=== PATIENT | female | born 1940 | race Caucasian/White ===

== ENCOUNTER 2017-07-19 07:45 | Inpatient (IN) | payer OTHER ==
[2017-06-27 12:59] VITALS: BMI 34.0
--- NOTE | 2017-06-27 13:45 | PAT Medication Instructions ---
Service Date Jun 27, 2017. Current Home Medication List Acetaminophen (Tylenol Arthritis Ext Rel), 650 MG PO Q8H PRN for Pain Atorvastatin (Lipitor), 20 MG PO HS Losartan Potassium (Cozaar), 25 MG PO QPM Magnesium Oxide (Mag-Ox), 400 MG PO QAM Potassium Chloride (Micro-K Ext Rel), 10 MEQ PO QAM Sennosides-Docusate Sodium (Stool Softener), 1 TAB PO QD PRN for Constipation Warfarin Sod (Jantoven), 2.5 MG PO MONDAY Warfarin Sod (Jantoven), 5 MG PO M,W,F,SAT,SUN Warfarin Sod (Aprtoven), 7.5 MG PO MONDAY Medication Instructions For Your Scheduled Surgery -Contact your prescriber for instructions for: Warfarin Sod (Aprtoven), 2.5 MG PO MONDAY Warfarin Sod (Aprtoven), 5 MG PO ,,,SAT,SUN Warfarin Sod (Aprtoven), 7.5 MG PO MONDAY - Hold the following medications 24 hours prior to surgery: Losartan Potassium (Cozaar), 25 MG PO QPM - Hold the following medications the morning of surgery: Magnesium Oxide (Mag-Ox), 400 MG PO QAM Potassium Chloride (Micro-K Ext Rel), 10 MEQ PO QAM Sennosides-Docusate Sodium (Stool Softener), 1 TAB PO QD PRN for Constipation - Take the following medications the morning of surgery with a sip of water: Acetaminophen (Tylenol Arthritis Ext Rel), 650 MG PO Q8H PRN for Pain (if needed , can be taken up to four hours before surgery) - Take the following medications as scheduled the night before surgery: Acetaminophen (Tylenol Arthritis Ext Rel), 650 MG PO Q8H PRN for Pain (if needed ) Atorvastatin (Lipitor), 20 MG PO HS Sennosides-Docusate Sodium (Stool Softener), 1 TAB PO QD PRN for Constipation ( if needed) If you have any questions please call us at [phone] or [phone] or [phone]
--- NOTE | 2017-06-27 14:25 | DIAGNOSTIC IMAGING REPORT ---
TWO VIEW CHEST CLINICAL HISTORY: Preoperative examination. FINDINGS: PA and lateral chest radiographs are compared to study dated 02/03/2015. The heart is enlarged and there is atherosclerotic calcification of the thoracic aorta. The pulmonary vascular is noncongested. Chronic elevation of the right hemidiaphragm and chronic interstitial thickening are similar to previous. No airspace consolidation or pleural effusion is identified. There is no pneumothorax. The skeletal structures are osteopenic. Degenerative change is seen in the shoulders and thoracic spine. Surgical clips are seen in the right upper quadrant. IMPRESSION: Cardiomegaly with no active disease in the chest. Electronically signed by: Luke Heard M.D. 06/27/2017 2:24 PM Dictated Date/Time: 06/27/2017 2:21 PM
[2017-06-27 14:42] LABS: BASO % 0.3 %; BASO ABS # 0.02 K/uL (0-0.2); EOS % 2.3 %; EOS ABS # 0.14 K/uL (0-0.5); HEMATOCRIT 37.7 % (37-47); HEMOGLOBIN 13.6 g/dL (12.0-16.0); IG# 0.01 K/uL (0.00-0.02); LYMPH % 34.5 %; LYMPH ABS # 2.08 K/uL (1.2-3.4); MEAN CELL VOLUME 88.7 fL (80-100); MEAN CORPUSCULAR HGB CONC 36.1 g/dl (32-36); MEAN PLATELET VOLUME 9.7 fL (7.4-10.4); MONO ABS # 0.48 K/uL (0.11-0.59); NEUT % 54.7 %; PLATELET COUNT 168 K/uL (130-400); RED CELL DISTRIBUTION WIDTH CV 13.5 % (11.5-14.5); RED CELL DISTRIBUTION WIDTH SD 44.1 fL (36.4-46.3); WHITE BLOOD COUNT 6.03 K/uL (4.8-10.8)
[2017-06-27 15:28] LABS: INR 5.6 (0.9-1.1)
[2017-06-27 15:29] LABS: PTT PATIENT 52.7 SECONDS (21.0-31.0)
[2017-06-27 16:00] LABS: ALBUMIN 3.4 gm/dl (3.4-5.0); CALCIUM 9.3 mg/dl (8.5-10.1); CREATININE 0.91 mg/dl (0.60-1.20); POTASSIUM 3.8 mmol/L (3.5-5.1)
[2017-06-28 06:41] LABS: HEMOGLOBIN A1C 5.9 % (4.5-5.6)
--- NOTE | 2017-07-18 20:55 | HISTORY & PHYSICAL EXAMINATION ---
DATE OF ADMISSION: 07/18/2017 CHIEF COMPLAINT: Chronic left shoulder rotator cuff tendinopathy. HISTORY OF PRESENT ILLNESS: This is a 76-year-old female patient of Dr. Camarena'ava complaining of chronic left shoulder rotator cuff tendinopathy. She has failed conservative treatment including intraarticular injections. She wished to proceed with a left reversed total shoulder arthroplasty. PAST MEDICAL HISTORY: Hypertension, atrial fibrillation, history of a mini stroke, carpal tunnel syndrome, osteoarthritis, spine problems, kidney stones, acid reflux. SOCIAL HISTORY: Nonsmoker, nondrinker. PAST SURGICAL HISTORY: Tonsillectomy, breast reduction, saliva gland tumor removal, hysterectomy, knee replacement, left leg vein surgery, bilateral eye surgery. FAMILY HISTORY: Noncontributory. REVIEW OF SYSTEMS: The patient complains of left shoulder pain and decreased strength, otherwise denies any shortness of breath, chest pain, nausea, vomiting, or any joint complaints. MEDICATIONS: Include: 1. Magnesium oxide 500 mg daily. 2. Coumadin 5 mg daily according to blood values. 3. Losartan 25 mg daily. 4. Atorvastatin 20 mg at bedtime. 5. Arthritis Tylenol as needed. ALLERGIES: No known drug allergies. PHYSICAL EXAMINATION: GENERAL: Well-developed, well-nourished 76-year-old female, in no acute distress. She is alert and oriented x3 and pleasant. HEENT: Normocephalic, atraumatic. Extraocular motions are intact. Pupils are equal and reactive to light. HEART: Regular rate and rhythm, no murmurs are appreciated. LUNGS: Clear. ABDOMEN: Soft and nontender. Bowel sounds are present. EXTREMITIES: Left shoulder reveals crepitation with passive range of motion. Actively, she can get to 0-45, passively to 120. She has 3+/5 strength. NEUROLOGIC: Neurovascularly, she is intact in the left upper extremity. DIAGNOSES: Left shoulder chronic rotator cuff tendinopathy, hypertension, atrial fibrillation, history of mini stroke, carpal tunnel syndrome, osteoarthritis, spine problems, acid reflux, kidney stones. PLAN: The patient was advised of the diagnosis. Indications, risks, benefits, postop course have all been reviewed. Patient wished to proceed with a left reversed total shoulder arthroplasty. Necessary consent forms, preoperative testing, and clearances will be obtained.
[2017-07-19] VITALS (7 sets, daily range): BP systolic 105–160; BP diastolic 66–97; PULSE 73–85; TEMP 36.4–36.6; O2SAT 91–97; Ht 152.4 cm; Wt 80.7 kg
[~2017-07-19] VITALS: Ht 152.4 cm; Wt 80.7 kg
[~2017-07-19 07:45] MED LIST: ACET1TAB84 PO; ACETAMINOPHEN 500 MG TAB PO SCH; ATOR-22 PO; CEFAZOLIN 2000MG IV PUSH 15 ML IV SCH; CeleBREX 200 MG CAP PO SCH; DEXAMETHASONE 4 MG TAB PO SCH; FAMOTIDINE 20 MG TAB PO SCH; GABAPENTIN 300 MG CAP PO SCH; LACTATED RINGER'S 1000ML 1,000 ML IV SCH; LOSA1TAB PO; MAGN400T6 PO; METOCLOPRAMIDE HCL 10 MG TAB PO SCH; POTA10CA28 PO; SENNTAB23 PO; WARF2.5T8 PO; WARF5TAB7 PO; WARF7.5T4 PO
[2017-07-19] MEDS ORDERED: ENOX80IN SQ (08:34)
[2017-07-19 08:41] LABS: INR 1.1 (0.9-1.1)
[2017-07-19] MEDS ORDERED: DEXAMETHASONE SOD INJ 4 MG/ML VIAL ONE (08:44)
[2017-07-19] MEDS ORDERED: BUPIVACAINE 0.25% 30 ML VIAL ONE (08:44)
[2017-07-19] MEDS ORDERED: EpINEphrine INJ 1MG/ML AMP 1 MG/ML AMP ONE (08:44)
[2017-07-19] MEDS ORDERED: FENTANYL CITRATE INJ 50 MCG/1 ML 2 ML VIAL ONE ×2 (11:07→12:51)
[2017-07-19] MEDS ORDERED: MIDAZOLAM HCL 1 MG/ML 2ML VIAL ONE (11:07)
--- NOTE | 2017-07-19 11:11 | History & Physical Bridge Note ---
H&P Re-Evaluation Bridge Note: I have examined the patient, reviewed the History & Physical and in the interval since the performance of the History & Physical I have noted the following changes of clinical significance: No changes noted
[2017-07-19] MEDS ORDERED: BACITRACIN 50000 UNIT VIAL ONE (11:15)
[2017-07-19] MEDS ORDERED: FENTANYL CITRATE INJ 50 MCG/1 ML 2 ML VIAL IV PRN (12:00)
[2017-07-19] MEDS ORDERED: ONDANSETRON INJ 2 MG/ML 2 ML VIAL IV PRN ×2 (12:00→14:30)
[2017-07-19] MEDS ORDERED: ATROPINE SULFATE 0.1 MG/ML 5ML SYR IV PRN (12:00)
[2017-07-19] MEDS ORDERED: EpHEDrine SULFATE INJ 50 MG/ML AMP IV PRN (12:00)
[2017-07-19] MEDS ORDERED: NEOSTIGMINE METHYLSULFATE 5 MG/5 ML SYR ONE (12:10)
[2017-07-19] MEDS ORDERED: GLYCOPYRROLATE INJ 0.2 MG/ML VIAL ONE (12:10)
[2017-07-19] MEDS ORDERED: LIDOCAINE HCL 2% 2 ML VIAL (20MG/ML) ONE (12:10)
[2017-07-19] MEDS ORDERED: ROCURONIUM BROMIDE 10 MG/ML 5 ML VIAL IV ONE (12:10)
[2017-07-19] MEDS ORDERED: PHENYLEPHRINE HCL INJ 10 MG/ML VIAL ONE (12:10)
[2017-07-19] MEDS ORDERED: PROPOFOL IV EMULSION 10 MG/ML 20 ML VIAL IV ONE (12:10)
[2017-07-19] MEDS ORDERED: ONDANSETRON INJ 2 MG/ML 2 ML VIAL ONE (12:10)
--- NOTE | 2017-07-19 14:19 | [facility] Post Operative Brief Note ---
Immediate Operative Summary Operative Date Jul 19, 2017. Pre-Operative Diagnosis Left Shoulder Chronic Rotator Cuff arthropathy rotaotr cuff tear. end stage djd glenohumeral,biceps tendinopathy Post-Operative Diagnosis same Procedure(s) Performed Left Reverse Total Shoulder Arthroplasty, Biceps Tendonesis, Rotator Cuff Repair Surgeon Dr Camarena In Service Coordinator Surgeon(s) Octavio Ledesma PA-C Estimated Blood Loss 100 cc Findings Consistent with Post-Op Diagnosis Specimens A: Humeral Head Drains 2 hemovac Anesthesia Type General Regional Complication(s) none Disposition Disposition: Recovery Room / PACU
[2017-07-19] MEDS ORDERED: DOCUSATE SODIUM/SENNA 50/8.6MG TAB PO PRN (14:30)
[2017-07-19] MEDS ORDERED: MoRPHine SULFATE 2 MG/ML CARP IV PRN (14:30)
[2017-07-19] MEDS ORDERED: NALOXONE HCL 0.4 MG/1 ML VIAL/CARP IV PRN (14:30)
[2017-07-19] MEDS ORDERED: KETOROLAC TROMETHAMINE 15 MG/ML VIAL IV. PRN (14:30)
[2017-07-19] MEDS ORDERED: SOD PHOSPHATE/SOD BIPHOSPHATE ENEMA 132 ML BTL PR PRN (14:30)
[2017-07-19] MEDS ORDERED: MAGNESIUM HYDROXIDE SUSP 30 ML UDC PO PRN (14:30)
[2017-07-19] MEDS ORDERED: METOCLOPRAMIDE HCL INJ 5 MG/ML 2 ML VIAL IV PRN (14:30)
[2017-07-19] MEDS ORDERED: ZOLPIDEM TARTRATE 5 MG TAB PO PRN (14:30)
[2017-07-19] MEDS ORDERED: BISACODYL 10 MG SUPP PR PRN (14:30)
--- NOTE | 2017-07-19 14:30 | [facility] Operative Report ---
Operative Report Operative Date Jul 19, 2017. Pre-Operative Diagnosis Left Shoulder Chronic Rotator Cuff arthropathy rotator cuff tear. end stage djd glenohumeral,biceps tendinopathy Post-Operative Diagnosis same Procedure(s) Performed left reversed total shoulder replacement,biceps tenodesis Surgeon Dr Camarena Lock Plater Surgeon(s) Octavio Ledesma PA-C Estimated Blood Loss 100 cc Findings chronic rotator cuff tear end stage djd ghj biceps tendinopathy Specimens A: Humeral Head Drains 2 hemovac Disposition Recovery Room / PACU Indications end stage djd oa chronic rotator cuff tear I attest to the content of the Intraoperative Record and any orders documented therein. Any exceptions are noted below.
[2017-07-19] MEDS ORDERED: LABETALOL HCL IV 5 MG/ML 20ML IV ONE (14:38)
--- NOTE | 2017-07-19 14:56 | [facility] Operative Report ---
Operative Report Operative Date Jul 19, 2017. Pre-Operative Diagnosis Left Shoulder Chronic Rotator Cuff arthropathy rotator cuff tear. end stage djd glenohumeral,biceps tendinopathy Post-Operative Diagnosis Same Procedure(s) Performed Left shoulder reversed total shoulder arthroplasty, biceps tenodesis and rotator cuff repair. Surgeon Dr Camarena Dog Hair Clipper Surgeon(s) Octavio Ledesma PA-C Estimated Blood Loss 100 cc Findings Severe end-stage glenohumeral osteoarthritis chronic nonrepairable rotator cuff tear rotator cuff tendinopathy, biceps tendinopathy. Specimens A: Humeral Head Drains 2 hemovac Anesthesia Regional block general Complication(s) None Disposition Recovery Room / PACU Indications 76-year-old female chronic progressive pain and disability left shoulder with chronic retracted nonrepairable rotator cuff tear end-stage glenohumeral DJD [id number] glenohumeral joint and biceps tendinopathy. Description of Procedure The patient was taken to the operating room and anesthetized under regional block and general anesthetic. The patient was positioned on the operating table in a 30 beachchair position with a towel roll under the medial border of the left scapula. The arm was draped free to be able to manipulate the shoulder as needed. The left upper extremity was prepped and draped in usual sterile fashion. Exam demonstrated axrf-tl-tliu crepitation very limited range of motion and a moderately obese arm. External rotation was to 35 abduction to 60 and forward elevation to 100. An anterior deltopectoral approach was performed. A longitudinal incision was made in the deltopectoral interval. The skin was incised sharply. Subcutaneous flaps were elevated off the fascia. The cephalic vein was dissected out and retracted lateral with the deltoid. The clavipectoral fascia was divided at the lateral margin of the conjoined tendon and extended up to the CA ligament. The following findings were noted: There was chronic thickened bursitis overlying the subscapularis tendon which was intact. There is chronic bicipital tenosynovitis biceps spurs in the bicipital groove and biceps tendinopathy within the joint with marked widening and fraying. There is a few fibers of the rotator cuff supraspinatus still intact. A large tear involving the posterior supraspinatus infraspinatus with retraction was identified with chronic tendinopathy and an intact teres minor. I excised the bursal tissue release any adhesions underlying the deltoid cauterized some bleeders. The upper centimeter of the pectoralis was released for inferior exposure. The biceps tendon was tenodesed to the pectoralis tendon with #2 FiberWire. The proximal biceps was resected. The subscapularis tendon was taken down off the lesser tuberosity using a subperiosteal dissection. A #1 Vicryl traction suture was placed into the free end of the subscapularis tendon and capsule. The subscapular muscle fibers were split longitudinally at the level of the circumflex vessels. The circumflex vessels were identified and tied off with silk ties and divided laterally. A Kitner elevator was used to free up the inferior fibers of the subscapularis off of the capsule. The axillary nerve was identified with a tug test and protected with a blunt Adonis retractor between the nerve and the capsule. The subscapularis tendon was then taken down off of the lesser tuberosity subperiosteally and subperiosteal dissection was performed along the neck of the humerus as the arm is gradually actually rotated exposing the humeral head. Retractors were readjusted and the inferior osteophytes were all resected using an artist chisel. A Zimmer elevator was used to assist in releasing the capsule of the neck of the humerus. The capsule was divided with Flood scissors down to the glenoid released off the anterior glenoid and the rotator interval was released to meet the capsular release and a 360 release of the subscapularis was accomplished. A Fukuda retractor was placed into the joint retracting the humeral head posterior. Glenoid findings demonstrated eburnated bone of the glenoid concentric type where majority of the labrum was worn away. The labrum remnants and biceps tendon was resected. Biceps tendon findings demonstrated widening tendinopathic biceps attachment. an anterior-inferior and posterior inferior capsular release were performed with electrocautery and a Zimmer elevator on bone with the axillary nerve protected inferiorly by the retractor. Attention was then taken to the humeral preparation. The cutting guide was placed into the humeral head. It was positioned at 20 of retroversion. Oscillating saw was used to resect the humeral head giving the cut above the level of the posterior rotator cuff insertion site. The humerus was then prepared for the stem. I used the ascend flex stem from [employer]. The sizing broaches were used followed by trial broaches up to a size 3B long which had the appropriate fit and fill. The appropriate sized cup protector was placed. The humerus was then retracted posterior to the glenoid. The glenoid was sized for a 25 mm Tornier aequalis standard baseplate. The guide for the baseplate was positioned in a 10 inferior tilt and the central drill hole was made. The reamer for the 25 baseplate was used. The central drill was widened for the peg. The 25 baseplate was impacted into position. The base plate was transfixed with superior and inferior locking screws and anterior and posterior compression screws with stable fixation. The fan reamer was used for the 36 millimeter glenoid sphere. After irrigation the 36 mm outer diameter 25 mm inner diameter with a +2 inferior offset glenoid sphere was impacted onto the baseplate and the screw was tightened. Attention was taken back to the humerus. The cut protector was removed and the high offset +0 humeral tray trial was assembled to the trial stem rotated appropriately to get bony coverage and then screwed in position. A trial reduction was performed. A +6 mm trial insert demonstrated good stability and no shuck. The trials were removed. 3 drill holes are made into the harder bone in the bicipital groove area and 3 #5 FiberWire sutures were placed transosseously. The canal was irrigated with antibiotic solution with bacitracin. The final component was assembled. The final component was sent flex IIIB longstem +0 high offset humeral tray with a + 6,36 mm polyethylene. This was then impacted into the humerus with a tight press-fit. It was reduced to the glenoid sphere. Stability was verified. Subscapularis was repaired with the #5 FiberWire sutures using Alban-Aston suture technique. Lateral row soft tissue repair was performed with #2 FiberWire ygnxhu-ul-bviys sutures. A #2 FiberWire suture was placed through the teres minor some the retracted infraspinatus was mobilized laterally and then through the posterior supraspinatus with a ynpajy-cx-prhqr dcgq-gx-dcdd suture technique to have more tissue posteriorly to assist in increased external rotation strength postop. The pectoralis was repaired with #2 FiberWire qwwuji-ag-rjmdo sutures reinforcing the biceps tendon tenodesis. The arm was taken through a range of motion which demonstrated 125 flexion 90 abduction 45 external rotation. The implant was stable through the range of motion tested. The wound was copiously irrigated. 2 Hemovac drains were placed. The deltopectoral interval was closed with tbgcrg-so-qswzy #1 Vicryl sutures. The subcutaneous tissues were closed with 2-0 Vicryl sutures. The skin was closed with nyasia. Sterile dressings were applied and a shoulder immobilizer. Octavio UGARTE, my physician technical administrative assistant assisted in the procedure to the entire procedure including patient positioning arm positioning prepping and draping soft tissue retraction instrument management suture management and performed the subcutaneous and skin closure and will participate in the postoperative care of the patient. I attest to the content of the Intraoperative Record and any orders documented therein. Any exceptions are noted below.
--- NOTE | 2017-07-19 15:22 | Anesthesiology Progress Note ---
Anesthesia Post Op Note Date & Time Jul 19, 2017 at 15:22 Vital Signs Pain Intensity: 0 Vital Signs Past 12 Hours Date Time Temp Pulse Resp B/P (MAP) Pulse Ox O2 Delivery O2 Flow Rate FiO2 07/19/17 15:10 71 16 148/88 95 Oxymask 3 07/19/17 15:00 73 16 164/83 94 Oxymask 3 07/19/17 14:50 75 16 156/77 95 Oxymask 3 07/19/17 14:40 76 16 164/74 95 Oxymask 5 07/19/17 14:32 36.2 74 16 167/78 95 Oxymask 5 07/19/17 11:26 16 137/71 (93) 96 Oxymask 10 07/19/17 08:15 36.6 85 20 160/97 97 Room Air Notes Mental Status: alert / awake / arousable, participated in evaluation Pt Amnestic to Procedure: Yes Nausea / Vomiting: adequately controlled Pain: adequately controlled Airway Patency, RR, SpO2: stable & adequate BP & HR: stable & adequate Hydration State: stable & adequate Anesthetic Complications: no major complications apparent
--- NOTE | 2017-07-19 15:24 | DIAGNOSTIC IMAGING REPORT ---
L SHOULDER MIN 2 VIEWS ROUTINE HISTORY: 76 years-old Female Post shoulder surgery status post left shoulder total joint arthroplasty COMPARISON: None available TECHNIQUE: 3 views of the left shoulder FINDINGS: Postoperative changes from recent reverse left shoulder total joint arthroplasty. Surgical nyasia are in place along with expected postsurgical soft tissue swelling and deep tissue air. Surgical drain is in place. No acute fracture or malalignment. Moderate degenerative changes of the AC joint. Lungs appear hypoinflated with left pleural effusion and left basilar opacities. IMPRESSION: Reverse left shoulder total joint arthroplasty with satisfactory alignment. The above report was generated using voice recognition software. It may contain grammatical, syntax or spelling errors. Electronically signed by: Errol Calderón M.D. 07/19/2017 3:22 PM Dictated Date/Time: 07/19/2017 3:21 PM
[2017-07-19] MEDS: D5W AND 1/2NSS + 20MEQ KCL 1,000 ML IV SCH (16:41)
[2017-07-19] MEDS: ENOXAPARIN 80 MG/0.8 ML SYR SQ SCH (18:19)
--- NOTE | 2017-07-19 19:55 | Medical Consult ---
Consultation Date of Consultation: Jul 19, 2017. Attending Physician: Dileep Camarena M.D. History of Present Illness 78 y/o F AF, HTN, TIA, renal calculi, DJD - presented for elective L total shoulder arthroplasty. She is recovering well post-op. Denies CP, SOB, N/V, fever or excessive pain. Past Medical/Surgical History 1) HTN 2) TIA 3) AF 4) DJD 5) Renal calculi 6) GERD Social History Smoking Status: Never Smoker Allergies Coded Allergies: Rivaroxaban (Verified Allergy, Mild, RASH, ITCHING, 07/19/17) Apixaban (Verified Adverse Reaction, Intermediate, 'SKIN CRAWLING', ) CHIDI Inhibitors (Verified Adverse Reaction, Mild, COUGH, 07/19/17) Current Inpatient Medications Current Inpatient Medications Medications (Trade) Dose Ordered Sig/Reggie Route Start Time Stop Time Status Last Admin Dose Admin Lactated Ringer's 1,000 ml @ 15 mls/hr Q24H IV 07/19/17 06:00 07/20/17 05:59 07/19/17 08:36 15 MLS/HR Atorvastatin Calcium (Lipitor Tab) 20 mg HS PO 07/19/17 21:00 08/18/17 20:59 Enoxaparin Sodium (Lovenox Inj) 80 mg Q12@0600,1800 SQ 07/19/17 18:00 08/18/17 17:59 07/19/17 18:19 80 MG Losartan Potassium (coZAAR TAB) 25 mg QPM PO 07/19/17 21:00 08/18/17 20:59 Magnesium Oxide (Mag-Ox Tab) 400 mg QAM PO 07/20/17 09:00 08/19/17 08:59 Potassium Chloride (Klor-Con M10) 10 meq QAM PO 07/20/17 09:00 08/19/17 08:59 Senna/Docusate Sodium (Senokot S Tab) 1 tab QD PRN PO 07/19/17 14:30 08/18/17 14:29 Warfarin Sodium (Coumadin Tab) 2.5 mg Q7D@1600 PO 07/25/17 16:00 08/24/17 15:59 Warfarin Sodium (Coumadin Tab) 5 mg SuMoWeFrSa@1600 PO 07/21/17 16:00 08/20/17 15:59 Warfarin Sodium (Coumadin Tab) 7.5 mg Q7D@1600 PO 07/20/17 16:00 08/19/17 15:59 Ketorolac Tromethamine (Toradol Inj) 15 mg Q6 PRN IV. 07/19/17 14:30 07/20/17 14:29 Diphenhydramine HCl (Benadryl Cap) 25 mg Q8 PRN PO 07/19/17 14:30 08/18/17 14:29 Zolpidem Tartrate (Ambien Tab) 5 mg HSZ PRN PO 07/19/17 14:30 08/18/17 14:29 Metoclopramide HCl (Reglan Inj) 10 mg Q6H PRN IV 07/19/17 14:30 08/18/17 14:29 Ondansetron HCl (Zofran Inj) 4 mg Q6H PRN IV 07/19/17 14:30 08/18/17 14:29 Pantoprazole Sodium (Protonix Tab) 40 mg QAM PO 07/20/17 09:00 07/24/17 08:59 Potassium Chloride/Dextrose/ Sod Cl 1,000 ml @ 100 mls/hr Q10H IV 07/19/17 16:30 07/20/17 16:29 07/19/17 16:41 100 MLS/HR Oxycodone HCl (Roxicodone Immediate Rel Tab) `1-2 TABS FOR PAIN `1 TAB... Q4H PRN PO 07/19/17 14:30 08/02/17 14:29 Acetaminophen (Tylenol Tab) 1,000 mg Q8 PO 07/19/17 22:00 08/18/17 21:59 Morphine Sulfate (MoRPHine SULFATE INJ) as needed FOR PAIN, 2-4MG ... Q2H PRN IV 07/19/17 14:30 08/02/17 14:29 Naloxone HCl (Narcan Inj) 0.1 mg Q2M PRN IV 07/19/17 14:30 08/18/17 14:29 Magnesium Hydroxide (Milk Of Magnesia Susp) 30 ml Q6H PRN PO 07/19/17 14:30 08/18/17 14:29 Bisacodyl (Dulcolax Supp) 10 mg DAILY PRN MA 07/19/17 14:30 08/18/17 14:29 Sodium Biphosphate/ Sodium Phosphate (Fleet Enema) 132 ml DAILY PRN MA 07/19/17 14:30 08/18/17 14:29 Docusate Sodium (coLACE CAP) 100 mg BID PO 07/19/17 21:00 08/18/17 20:59 Multivitamins (Multivitamin Tab) 1 tab DAILY PO 07/20/17 09:00 08/19/17 08:59 Cefazolin Sodium 2000 mg/Syringe 15 ml @ 3.75 mls/ min Q8H IV 07/19/17 20:00 07/20/17 04:03 Review of Systems Constitutional: No fever, No chills, No sweats Eyes: No worsening of vision ENT: + hearing loss (Chronic) Respiratory: No cough, No sputum, No wheezing Cardiovascular: No chest pain, No orthopnea, No PND Abdomen: No pain, No nausea, No vomiting Musculoskeletal: No joint pain (No current pain reported) Genitourinary - Female: No dysuria, No urinary frequency, No urinary urgency Neurologic: No memory loss, No paralysis, No weakness Psychiatric: No depression symptoms Endocrine: No fatigue Hematologic / Lymphatic: + abnormal bleeding/bruising (Blood from drain in shoulder) Integumentary: No rash Physical Exam Date Time Temp Pulse Resp B/P (MAP) Pulse Ox O2 Delivery O2 Flow Rate FiO2 07/19/17 18:44 36.6 80 16 105/67 (80) 95 Room Air 07/19/17 16:40 36.4 73 18 133/79 (97) 95 Oxymask 3.0 07/19/17 16:16 36.4 73 16 110/66 (81) 95 Diffusion Mask 3.0 07/19/17 15:40 36.4 75 18 145/83 (103) 91 Oxymask 3.0 07/19/17 15:40 Oxymask 3.0 07/19/17 15:30 74 16 146/82 95 Oxymask 3 07/19/17 15:20 36.5 75 16 147/88 95 Oxymask 3 07/19/17 15:10 71 16 148/88 95 Oxymask 3 07/19/17 15:00 73 16 164/83 94 Oxymask 3 07/19/17 14:50 75 16 156/77 95 Oxymask 3 07/19/17 14:40 76 16 164/74 95 Oxymask 5 07/19/17 14:32 36.2 74 16 167/78 95 Oxymask 5 07/19/17 11:26 16 137/71 (93) 96 Oxymask 10 07/19/17 08:15 36.6 85 20 160/97 97 Room Air General Appearance: WD/WN, no apparent distress Head: normocephalic Eyes: normal inspection, EOMI ENT: normal ENT inspection, pharynx normal Neck: supple, thyroid normal Respiratory/Chest: chest non-tender, lungs clear Cardiovascular: no edema, no gallop, no murmur, + irregularly irregular Abdomen/GI: normal bowel sounds, non tender, soft Back: normal inspection, no CVA tenderness Extremities/Musculoskelatal: + pertinent finding (Bandaged L shoulder - drain in place - pulses + in all extrems) Neurologic/Psych: 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 She is recovering well post-op. Denies CP, SOB, N/V, fever or excessive pain. 1) Pst-op - no acute issues - pain is controlled - anticoagulation provided - PT /OT to discretion of ortho 2) AF - rate controlled without rate agents - She normally takes Coumadin and can likely resume AM. She is receiving BID Lovenox to bridge. 3) HTN - Can resume Losartan AM provided BMP remains at baseline 4) History of TIA - cont Statin and transition benjamin to Coumadin as possible. Total time for this admit including review of labs, meds, imaging, records, ortho notes - discussion/exam with pt - 30 min Med will follow pending DC
[2017-07-19] MEDS: CEFAZOLIN IV 2,000 MG in SYRINGE 0 ML IV SCH (20:20)
[2017-07-19] MEDS: DOCUSATE SODIUM 100 MG CAP PO SCH (20:21)
[2017-07-19] MEDS: ATORVASTATIN 20 MG TAB PO SCH (20:21)
[2017-07-19] MEDS: LOSARTAN POTASSIUM 25 MG TAB PO SCH (20:22)
[2017-07-19] MEDS: ACETAMINOPHEN 500 MG TAB PO SCH (21:15)
[2017-07-20] MEDS: D5W AND 1/2NSS + 20MEQ KCL 1,000 ML IV SCH (02:20)
[2017-07-20] MEDS: CEFAZOLIN IV 2,000 MG in SYRINGE 0 ML IV SCH (04:08)
[2017-07-20 04:15] VITALS: BP 139/74; PULSE 68; TEMP 36.4; O2SAT 91
[2017-07-20] MEDS: ACETAMINOPHEN 500 MG TAB PO SCH ×3 (05:57→21:09)
[2017-07-20] MEDS: ENOXAPARIN 80 MG/0.8 ML SYR SQ SCH ×2 (05:57→18:34)
[2017-07-20 06:24] LABS: HEMATOCRIT 34.1 % (37-47); HEMOGLOBIN 12.2 g/dL (12.0-16.0); MEAN CELL VOLUME 89.5 fL (80-100); MEAN CORPUSCULAR HGB CONC 35.8 g/dl (32-36); MEAN PLATELET VOLUME 9.8 fL (7.4-10.4); PLATELET COUNT 164 K/uL (130-400); RED CELL DISTRIBUTION WIDTH CV 13.4 % (11.5-14.5); RED CELL DISTRIBUTION WIDTH SD 43.6 fL (36.4-46.3); WHITE BLOOD COUNT 12.57 K/uL (4.8-10.8)
[2017-07-20 06:32] LABS: INR 1.1 (0.9-1.1)
[2017-07-20 06:51] LABS: CALCIUM 8.8 mg/dl (8.5-10.1); CREATININE 1.24 mg/dl (0.60-1.20); POTASSIUM 3.9 mmol/L (3.5-5.1)
[2017-07-20 06:53] VITALS: BP 152/79; PULSE 71; TEMP 36.5; O2SAT 90
[2017-07-20] MEDS: POTASSIUM CHLORIDE 10 MEQ TABCR PO SCH (07:52)
[2017-07-20] MEDS: DOCUSATE SODIUM 100 MG CAP PO SCH ×2 (07:52→20:19)
[2017-07-20] MEDS: PANTOprazole SOD 40 MG TAB PO SCH (07:53)
[2017-07-20] MEDS: MULTIVITAMIN TAB PO SCH (07:53)
[2017-07-20] MEDS: MAGNESIUM OXIDE 400 MG TAB PO SCH (07:53)
--- NOTE | 2017-07-20 08:28 | Orthopedic Progress Note ---
Orthopedic Progress Note Date of Service Jul 20, 2017. Subjective Post OP Day: 1 Reports: feeling well, pain controlled w PO medications, Denies: complaints, chest pain, SOB, nausea / vomiting, light headedness, calf pain Objective N/V intact, capillary refill less than 2 sec., dressing C/D/I, A&O x3 Sling in tact, fingers mobile. Date Time Temp Pulse Resp B/P (MAP) Pulse Ox O2 Delivery O2 Flow Rate FiO2 07/20/17 06:53 36.5 71 18 152/79 (103) 90 Room Air 07/20/17 04:15 36.4 68 18 139/74 (95) 91 Room Air 07/19/17 23:50 92 Room Air 3.0 07/19/17 23:45 36.4 82 18 136/79 (98) 92 Room Air 07/19/17 18:44 36.6 80 16 105/67 (80) 95 Room Air 07/19/17 16:40 36.4 73 18 133/79 (97) 95 Oxymask 3.0 07/19/17 16:16 36.4 73 16 110/66 (81) 95 Diffusion Mask 3.0 07/19/17 15:40 36.4 75 18 145/83 (103) 91 Oxymask 3.0 07/19/17 15:40 Oxymask 3.0 07/19/17 15:30 74 16 146/82 95 Oxymask 3 07/19/17 15:20 36.5 75 16 147/88 95 Oxymask 3 07/19/17 15:10 71 16 148/88 95 Oxymask 3 07/19/17 15:00 73 16 164/83 94 Oxymask 3 07/19/17 14:50 75 16 156/77 95 Oxymask 3 07/19/17 14:40 76 16 164/74 95 Oxymask 5 07/19/17 14:32 36.2 74 16 167/78 95 Oxymask 5 07/19/17 11:26 16 137/71 (93) 96 Oxymask 10 Laboratory Results 24 Hours: Test 07/20/17 06:00 Hematocrit 34.1 % Hemoglobin 12.2 g/dL Prothromb Time International Ratio 1.1 Prothrombin Time 11.8 SECONDS Assessment & Plan Assessment: POD #1, Left reversed TSA, biceps tenodesis, RCR Plan: PT/ OT DVT proph- Coumadin and lovenox D/C planning- Home likely tomorrow. As per medicine. Inhouse Planning Pain Management: Toradol, Morphine, PO Tylenol, Oxy IR DVT Prophylaxis: SCDs, Coumadin, Lovenox Discharge Planning Discharge Planning: home Pain Management: PO Tylenol, Oxy IR DVT Prophylaxis: Coumadin, Lovenox
--- NOTE | 2017-07-20 10:42 | Anesthesiology Progress Note ---
Anesthesia Post Op Note Date & Time Jul 20, 2017 at 10:42 Vital Signs Pain Intensity: 0.0 Vital Signs Past 12 Hours Date Time Temp Pulse Resp B/P (MAP) Pulse Ox O2 Delivery O2 Flow Rate FiO2 07/20/17 06:53 36.5 71 18 152/79 (103) 90 Room Air 07/20/17 04:15 36.4 68 18 139/74 (95) 91 Room Air 07/19/17 23:50 92 Room Air 3.0 07/19/17 23:45 36.4 82 18 136/79 (98) 92 Room Air Notes Mental Status: alert / awake / arousable, participated in evaluation Pt Amnestic to Procedure: Yes Nausea / Vomiting: adequately controlled Pain: adequately controlled Airway Patency, RR, SpO2: stable & adequate BP & HR: stable & adequate Hydration State: stable & adequate Anesthetic Complications: no major complications apparent
[2017-07-20 11:10] VITALS: BP 123/70; PULSE 69; TEMP 36.7; O2SAT 94
--- NOTE | 2017-07-20 14:27 | Progress Note ---
Subjective Date of Service: Jul 20, 2017. Subjective Pt evaluation today including: conversation w/ patient, physical exam, lab review, review of inpatient medication list Pain: minimal shoulder pain PO Intake: adequate Voiding: no voiding problems no complaints today, sitting up in chair, doing well, shoulder pain controlled reviewed labs, Cr up slightly at 1.2, otherwise labs are stable already got Losartan last night which is fine Review of Systems Musculoskeletal: + joint pain (minimal pain in left shoulder, immobilized) All Other Systems: Reviewed and Negative Medications Current Inpatient Medications Medications (Trade) Dose Ordered Sig/Reggie Route Start Time Stop Time Status Last Admin Dose Admin Atorvastatin Calcium (Lipitor Tab) 20 mg HS PO 07/19/17 21:00 08/18/17 20:59 07/19/17 20:21 20 MG Enoxaparin Sodium (Lovenox Inj) 80 mg Q12@0600,1800 SQ 07/19/17 18:00 08/18/17 17:59 07/20/17 05:57 80 MG Losartan Potassium (coZAAR TAB) 25 mg QPM PO 07/19/17 21:00 08/18/17 20:59 Future Hold 07/19/17 20:22 25 MG Magnesium Oxide (Mag-Ox Tab) 400 mg QAM PO 07/20/17 09:00 08/19/17 08:59 07/20/17 07:53 400 MG Potassium Chloride (Klor-Con M10) 10 meq QAM PO 07/20/17 09:00 08/19/17 08:59 07/20/17 07:52 10 MEQ Senna/Docusate Sodium (Senokot S Tab) 1 tab QD PRN PO 07/19/17 14:30 08/18/17 14:29 Warfarin Sodium (Coumadin Tab) 2.5 mg Q7D@1600 PO 07/25/17 16:00 08/24/17 15:59 Warfarin Sodium (Coumadin Tab) 5 mg SuMoWeFrSa@1600 PO 07/21/17 16:00 08/20/17 15:59 Warfarin Sodium (Coumadin Tab) 7.5 mg Q7D@1600 PO 07/20/17 16:00 08/19/17 15:59 Ketorolac Tromethamine (Toradol Inj) 15 mg Q6 PRN IV. 07/19/17 14:30 07/20/17 14:29 Diphenhydramine HCl (Benadryl Cap) 25 mg Q8 PRN PO 07/19/17 14:30 08/18/17 14:29 Zolpidem Tartrate (Ambien Tab) 5 mg HSZ PRN PO 07/19/17 14:30 08/18/17 14:29 Metoclopramide HCl (Reglan Inj) 10 mg Q6H PRN IV 07/19/17 14:30 08/18/17 14:29 Ondansetron HCl (Zofran Inj) 4 mg Q6H PRN IV 07/19/17 14:30 08/18/17 14:29 Pantoprazole Sodium (Protonix Tab) 40 mg QAM PO 07/20/17 09:00 07/24/17 08:59 07/20/17 07:53 40 MG Oxycodone HCl (Roxicodone Immediate Rel Tab) `1-2 TABS FOR PAIN `1 TAB... Q4H PRN PO 07/19/17 14:30 08/02/17 14:29 Acetaminophen (Tylenol Tab) 1,000 mg Q8 PO 07/19/17 22:00 08/18/17 21:59 07/20/17 13:49 1,000 MG Morphine Sulfate (MoRPHine SULFATE INJ) as needed FOR PAIN, 2-4MG ... Q2H PRN IV 07/19/17 14:30 08/02/17 14:29 Naloxone HCl (Narcan Inj) 0.1 mg Q2M PRN IV 07/19/17 14:30 08/18/17 14:29 Magnesium Hydroxide (Milk Of Magnesia Susp) 30 ml Q6H PRN PO 07/19/17 14:30 08/18/17 14:29 Bisacodyl (Dulcolax Supp) [address] 07/19/17 14:30 08/18/17 14:29 Sodium Biphosphate/ Sodium Phosphate (Fleet Enema) [address] 07/19/17 14:30 08/18/17 14:29 Docusate Sodium (coLACE CAP) 100 mg BID PO 07/19/17 21:00 08/18/17 20:59 07/20/17 07:52 100 MG Multivitamins (Multivitamin Tab) 1 tab DAILY PO 07/20/17 09:00 08/19/17 08:59 07/20/17 07:53 1 TAB Objective Vital Signs Date Time Temp Pulse Resp B/P (MAP) Pulse Ox O2 Delivery O2 Flow Rate FiO2 07/20/17 11:10 36.7 69 18 123/70 (87) 94 Room Air 07/20/17 07:45 Room Air 07/20/17 06:53 36.5 71 18 152/79 (103) 90 Room Air 07/20/17 04:15 36.4 68 18 139/74 (95) 91 Room Air 07/19/17 23:50 92 Room Air 3.0 07/19/17 23:45 36.4 82 18 136/79 (98) 92 Room Air 07/19/17 18:44 36.6 80 16 105/67 (80) 95 Room Air 07/19/17 16:40 36.4 73 18 133/79 (97) 95 Oxymask 3.0 07/19/17 16:16 36.4 73 16 110/66 (81) 95 Diffusion Mask 3.0 07/19/17 15:40 36.4 75 18 145/83 (103) 91 Oxymask 3.0 07/19/17 15:40 Oxymask 3.0 07/19/17 15:30 74 16 146/82 95 Oxymask 3 07/19/17 15:20 36.5 75 16 147/88 95 Oxymask 3 07/19/17 15:10 71 16 148/88 95 Oxymask 3 07/19/17 15:00 73 16 164/83 94 Oxymask 3 07/19/17 14:50 75 16 156/77 95 Oxymask 3 07/19/17 14:40 76 16 164/74 95 Oxymask 5 07/19/17 14:32 36.2 74 16 167/78 95 Oxymask 5 Physical Exam General Appearance: WD/WN, no apparent distress Eyes: normal inspection, EOMI, sclerae normal ENT: normal ENT inspection, hearing grossly normal, pharynx normal Neck: supple, no adenopathy, no JVD, trachea midline Respiratory/Chest: chest non-tender, lungs clear, normal breath sounds, no respiratory distress, no accessory muscle use Cardiovascular: no edema, no gallop, no JVD, no murmur, + irregularly irregular Abdomen: normal bowel sounds, non tender, soft, no organomegaly Extremities: no pedal edema, no calf tenderness, normal capillary refill, pelvis stable Neurologic/Psychiatric: manager clinic II-XII nml as tested, no motor/sensory deficits, alert, normal mood/affect, oriented x 3 Skin: normal color, warm/dry, no rash Laboratory Results Last 24 Hours Test 07/20/17 06:00 White Blood Count 12.57 K/uL Red Blood Count 3.81 M/uL Hemoglobin 12.2 g/dL Hematocrit 34.1 % Mean Corpuscular Volume 89.5 fL Mean Corpuscular Hemoglobin 32.0 pg Mean Corpuscular Hemoglobin Concent 35.8 g/dl RDW Standard Deviation 43.6 fL RDW Coefficient of Variation 13.4 % Platelet Count 164 K/uL Mean Platelet Volume 9.8 fL Prothrombin Time 11.8 SECONDS Prothromb Time International Ratio 1.1 Sodium Level 136 mmol/L Potassium Level 3.9 mmol/L Chloride Level 105 mmol/L Carbon Dioxide Level 23 mmol/L Anion Gap 8.0 mmol/L Blood Urea Nitrogen 16 mg/dl Creatinine 1.24 mg/dl Est Creatinine Clear Calc Drug Dose 35.2 ml/min Estimated GFR () 48.2 Estimated GFR (Non- 41.6 BUN/Creatinine Ratio 12.5 Random Glucose 246 mg/dl Calcium Level 8.8 mg/dl Assessment and Plan 78 y/o F AF, HTN, TIA, renal calculi, DJD - presented for elective L total shoulder arthroplasty. She is recovering well post-op. Denies CP, SOB, N/V, fever or excessive pain. 1) s/p left shoulder arthroplasty, POD 1, doing well, minimal pain, breathing well, had a BM this morning management per orthopedic surgery 2) AF - rate continues to be controlled without rate agents, on Lovenox BID for full anticoagulation, resume Coumadin when okay with surgery 3) HTN - continue Losartan, very slight rise in Cr at 1.2 from 0.9 but patient drinking well and had fluids overnight 4) History of TIA - cont Statin and transition benjamin to Coumadin as possible. will sign off, call for any new issues
[2017-07-20 15:11] VITALS: BP 129/81; PULSE 67; TEMP 36.4; O2SAT 97
[2017-07-20] MEDS ORDERED: WARFARIN SOD 7.5 MG TAB PO SCH (16:00)
[2017-07-20] MEDS: ATORVASTATIN 20 MG TAB PO SCH (20:20)
[2017-07-20] MEDS: LOSARTAN POTASSIUM 25 MG TAB PO SCH (21:09)
[2017-07-20 23:28] VITALS: BP 146/73; PULSE 92; TEMP 36.7; O2SAT 91
[2017-07-20 23:30] VITALS: O2SAT 91
[2017-07-20] MEDS: OXYCODONE HCL IR 5 MG TAB (IMMEDIATE RELEASE) PO PRN (23:37)
[2017-07-21 05:22] VITALS: O2SAT 91
[2017-07-21] MEDS: OXYCODONE HCL IR 5 MG TAB (IMMEDIATE RELEASE) PO PRN (05:55)
[2017-07-21] MEDS: ENOXAPARIN 80 MG/0.8 ML SYR SQ SCH (05:56)
[2017-07-21] MEDS: ACETAMINOPHEN 500 MG TAB PO SCH ×2 (05:56→14:00)
[2017-07-21 06:05] VITALS: BP 148/75; PULSE 88
[2017-07-21 06:07] LABS: HEMATOCRIT 31.5 % (37-47); MEAN CELL VOLUME 89.7 fL (80-100); MEAN CORPUSCULAR HEMOGLOBIN 31.3 pg (25-34); MEAN CORPUSCULAR HGB CONC 34.9 g/dl (32-36); PLATELET COUNT 148 K/uL (130-400); RED CELL DISTRIBUTION WIDTH CV 13.7 % (11.5-14.5); RED CELL DISTRIBUTION WIDTH SD 44.5 fL (36.4-46.3); WHITE BLOOD COUNT 10.36 K/uL (4.8-10.8)
[2017-07-21 06:12] LABS: INR 1.2 (0.9-1.1)
[2017-07-21 06:47] LABS: CALCIUM 8.7 mg/dl (8.5-10.1); CREATININE 1.07 mg/dl (0.60-1.20); POTASSIUM 3.8 mmol/L (3.5-5.1)
--- NOTE | 2017-07-21 06:48 | Orthopedic Progress Note ---
Orthopedic Progress Note Date of Service Jul 21, 2017. Subjective Post OP Day: 2 Reports: feeling well, pain controlled w PO medications, Denies: complaints, chest pain, SOB, nausea / vomiting, light headedness, calf pain Additional Notes: Reported an episode of dizziness this AM when trying to use restroom, states has resolved. Objective N/V intact, capillary refill less than 2 sec., dressing C/D/I, incision C/D/I, A &O x3 Sling in tact, fingers mobile. Date Time Temp Pulse Resp B/P (MAP) Pulse Ox O2 Delivery O2 Flow Rate FiO2 07/21/17 06:05 88 148/75 (99) 07/21/17 05:22 91 Room Air 3.0 07/20/17 23:30 91 Room Air 3.0 07/20/17 23:28 36.7 92 16 146/73 (97) 91 Room Air 07/20/17 15:40 Room Air 07/20/17 15:11 36.4 67 18 129/81 (97) 97 Room Air 07/20/17 11:10 36.7 69 18 123/70 (87) 94 Room Air 07/20/17 07:45 Room Air 07/20/17 06:53 36.5 71 18 152/79 (103) 90 Room Air Laboratory Results 24 Hours: Test 07/21/17 05:43 Hematocrit 31.5 % Hemoglobin 11.0 g/dL Prothromb Time International Ratio 1.2 Prothrombin Time 12.3 SECONDS Assessment & Plan Assessment: POD #2, Left reversed TSA, biceps tenodesis, RCR Plan: PT/ OT DVT proph- Coumadin and lovenox D/C planning- Home likely today if no more dizzy episodes. As per medicine. Inhouse Planning Pain Management: Toradol, Morphine, PO Tylenol, Oxy IR DVT Prophylaxis: SCDs, Coumadin, Lovenox Discharge Planning Discharge Planning: home Pain Management: PO Tylenol, Oxy IR DVT Prophylaxis: Coumadin, Lovenox
[2017-07-21] MEDS ORDERED: RXC5 PO (06:50)
[2017-07-21] MEDS ORDERED: ACET-24 PO (06:50)
--- NOTE | 2017-07-21 06:55 | Discharge Instructions ---
Discharge Instructions Date of Service Jul 21, 2017. Admission Reason for Admission: Left Shoulder Rotator Cuff Arthropathy Discharge Discharge Diagnosis / Problem: Left reversed tsa, biceps tenodesis, Rotator cuff repair. Discharge Goals Goal(s): Improve function Activity Recommendations Activity Limitations: as noted below . Instructions / Follow-Up Instructions / Follow-Up ACTIVITY RECOMMENDATIONS: SELF CARE INSTRUCTIONS AFTER TOTAL SHOULDER ARTHROPLASTY REVERSE A. You may do daily exercises as taught in physical therapy while in hospital. No lifting with the operative arm. B. You are to wear your sling/immobilizer at all times EXCEPT when performing your daily exercises and for hygiene purposes. C. You may perform dry, daily dressing changes. Please keep your incision covered. You may shower 48 hours after surgery. Do not apply soap or any ointment/ lotions directly over incision. Do not soak incision in bath tub/swimming pool. D. You may use ice as needed to operative shoulder. SPECIAL CARE INSTRUCTIONS: VERY IMPORTANT TO READ AND REVIEW A. There are a few signs you need to watch for after you are home. Call [facility] at [phone] if you experience any of the followin. Increased severe shoulder pain. Some pain is expected especially when you exercise. 2. Increased swelling in you shoulder or arm; pain or swelling in either upper extremity. 3. Any fluid drainage from the incision. 4. Shortness of breath or chest pain. B. Please call [facility] at [phone] if you have any questions or concerns about your operation or recovery. C. Call your physician if: 1. Temperature is greater than 101 degrees (F). 2. Pain is not relieved by prescribed pain medications. 3. Increase drainage or redness from incision. 4. Unanswered questions or concerns. FOLLOW UP VISIT: Please call [facility] at [phone] to schedule a follow up appointment with Dr. Camarena or his PA in 12-14 days from your surgery date. FOLLOW UP WITH YOUR DOCTOR MONDAY CONCERNING YOUR COUMADIN AND LOVENOX DOSING. YOU WILL USE THE LOVENOX UNTIL YOUR COUMADIN IS THERAPEUTIC BASED ON BLOOD WORK YOUR DOCTOR WILL ORDER. Current Hospital Diet Patient's current hospital diet: AHA Diet (Heart Healthy) Discharge Diet Recommended Diet: Regular Diet Procedures Procedures Performed: Left Reverse Total Shoulder Arthroplasty, Biceps Tendonesis, Rotator Cuff Repair Pending Studies Studies pending at discharge: no Laboratory Results Hemoglobin A1c Test 06/27/17 13:55 Range/Units Estimated Average Glucose 123 mg/dl Hemoglobin A1c 5.9 H 4.5-5.6 % Medical Emergencies . Who to Call and When: Medical Emergencies: If at any time you feel your situation is an emergency, please call 911 immediately. . Non-Emergent Contact Non-Emergency issues call your: Primary Care Provider . "Provider Documentation" section prepared by Octavio Franco . [place] Drug Monitoring Program Search Results: patient reviewed within database, no issues identified
[2017-07-21 07:12] VITALS: BP 136/78; PULSE 86; TEMP 36.8; O2SAT 93
[2017-07-21] MEDS: POTASSIUM CHLORIDE 10 MEQ TABCR PO SCH (09:01)
[2017-07-21] MEDS: MULTIVITAMIN TAB PO SCH (09:01)
[2017-07-21] MEDS: MAGNESIUM OXIDE 400 MG TAB PO SCH (09:01)
[2017-07-21] MEDS: PANTOprazole SOD 40 MG TAB PO SCH (09:01)
[2017-07-21] MEDS: DOCUSATE SODIUM 100 MG CAP PO SCH (09:02)
[2017-07-21 09:52] VITALS: TEMP 36.8; O2SAT 93
[2017-07-21 10:24] VITALS: BP 146/76; PULSE 100; O2SAT 95
[2017-07-21] MEDS ORDERED: WARFARIN SOD 5 MG TAB PO SCH (16:00)
[2017-07-25] MEDS ORDERED: WARFARIN SOD 2.5 MG TAB PO SCH (16:00)
== END 2017-07-21 15:13 | disposition home health service (06) | DRG 483 ==
LOC: C.ACU 07:45 → C.3E 14:32 → ENRESERV 15:18
PROVIDERS: ADMIT Orthopaedic Surgery Sports Medicine; ATTEND Orthopaedic Surgery Sports Medicine
PROC: 0RRK00Z Replacement of Left Shoulder Joint with Reverse Ball and Socket Synthetic Substitute, Open Approach (ICD-10-PCS; principal; 2017-07-19 10:30)
DX: M19.012 Primary osteoarthritis, left shoulder (principal); I10 Essential (primary) hypertension; I48.91 Unspecified atrial fibrillation; Z86.73 Personal history of transient ischemic attack (TIA), and cerebral infarction without residual deficits; K21.9 Gastro-esophageal reflux disease without esophagitis; Z96.659 Presence of unspecified artificial knee joint